=== PATIENT | male | born 1970 | race Hispanic/Latino ===

== ENCOUNTER 2022-11-19 10:52 | Outpatient (RCR) | payer MEDICARE | END 2022-11-26 | LOC: OT 10:52 | PROVIDERS: ATTEND Specialist | DX: S43.431A Superior glenoid labrum lesion of right shoulder, initial encounter (principal) ==

== ENCOUNTER 2022-11-27 07:52 | Outpatient (RCR) | payer MEDICARE | END 2022-12-26 | LOC: OT 07:52 | PROVIDERS: ATTEND Specialist | DX: S43.431D Superior glenoid labrum lesion of right shoulder, subsequent encounter (principal); M75.81 Other shoulder lesions, right shoulder; M25.512 Pain in left shoulder; M25.611 Stiffness of right shoulder, not elsewhere classified; R53.1 Weakness ==